=== PATIENT | female | born 1990 | race Caucasian/White ===

== ENCOUNTER 2020-08-16 12:16 | Inpatient (IN) | payer OTHER, SELFPAY ==
[2020-08-16] VITALS (147 sets, daily range): BP systolic 112–188; BP diastolic 68–108; PULSE 71–113; RESP 17–18; TEMP 36.6–37.2; O2SAT 93–100; BMI 31.4
--- NOTE | ~2020-08-16 | US_ITS ---
EXAMINATION: US OB follow up DATE: 08/16/2020 14:44 INDICATION: Growth and presentation. Third trimester. TECHNIQUE: Real-time ultrasound of the pelvis was performed. COMPARISON: None. FINDINGS: There is a single living fetus in vertex presentation. The placenta is fundal. heart rate is 1 59 beats per minute (bpm). The amniotic fluid index is 7.0 cm, which is low (5th percentile is 7.7 cm ). The following biometric data were obtained: Biparietal diameter (BPD): 8.9 cm; head circumference (HC): 31.9 cm; abdominal circumference (AC): 31 .4 cm; femur length (FL): 7.0 cm. These measurements are concordant. Estimated weight is 2731 g +/- 410 g, which correlates with 32nd percentile when 09/10/20 is use d as estimated date of delivery. As single measurements, these parameters are each equal to the following estimated gestational ages: BPD: 35 weeks 6 days. HC: 36 weeks 0 days. AC: 35 weeks 3 days. FL: 36 weeks 0 days. estimated gestational age based solely on measurements from this exam is 35 weeks 6 days +/- 2 weeks 4 days. IMPRESSION: 1. Single living fetus in vertex presentation. 2. Estimated weight is 2731 g +/- 410 g, which correlates with 32nd percentile when 09/10/20 is used as estimated date of delivery. 3. Oligohydramnios. Reviewed, dictated and finalized at location B. SOFTWARE DEVELOPER IMPRESSION: 1. Single living fetus in vertex presentation. 2. Estimated weight is 2731 g +/- 410 g, which correlates with 32nd perc entile when 09/10/20 is used as estimated date of delivery. 3. Oligohydramnios.
[2020-08-16 13:09] LABS: Basophils Percent Auto 0.3 % (0.2-1.2); Eosinophils Percent Auto 0.1 % (0-4.4); Hematocrit 35.3 % (37.0-47.0); Hemoglobin 11.8 g/dL (12.0-15.0); Immature Granulocyte Absolute 0.05 K/mm3 (0.00-0.031); Immature Granulocyte Percent A 0.5 % (0-0.5); Lymphocytes Percent Auto 24.7 % (18.3-44.2); Mean Corpuscular HGB Conc 33.4 g/dl (32-36); Mean Corpuscular Hemoglobin 29.4 pg (26-34); Mean Platelet Volume 12.9 fl (7.4-10.4); Monocytes Absolute Auto 0.7 K/mm3 (0.1-0.6); Monocytes Percent Auto 6.3 % (2.6-8.5); Neutrophils Absolute Auto 7.5 K/mm3 (1.3-6.7); Neutrophils Percent Auto 68.1 % (45.5-73.1); Platelet Count Result 184 k/mm3 (150-375); Red Blood Count 4.01 M/mm3 (4.2-5.4)
[2020-08-16 13:18] LABS: Alanine Aminotransferase 10 U/L (4-35); Albumin Level 3.3 g/dL (3.5-5.1); Alkaline Phosphatase 168 U/L (38-126); Anion Gap 2 mmol/L (8-16); Aspartate Amino Transferase 27 U/L (14-36); Bilirubin,Total 0.4 mg/dL (0.2-1.3); Blood Urea Nitrogen 12 mg/dL (7-17); Calcium 9.2 mg/dL (8.4-10.2); Carbon Dioxide 26 mmol/L (22-30); Chloride 105 mmol/L (98-107); Estimated Glomerular Filt Rate > 60; Glucose 81 mg/dL (65-105); Potassium 4.3 mmol/L (3.4-5.0); Sodium 133 mmol/L (137-145); Uric Acid 5.6 mg/dL (2.5-7.5)
[2020-08-16 13:34] LABS: Creatinine Urine 25.6 mg/dL; Total Protein Urine Random 144 mg/dL; Ur Ttl Prot Creatinine Ratio 5.63 mg/mg (0-0.20)
[2020-08-16 13:38] LABS: Add Urine Microscopic? YES; Appearance Urine Clear (Clear); Bacteria Urine 3+ /hpf; Bilirubin Urine Negative (Negative); Blood Urine Negative (Negative); Color Urine Straw (Yellow); Glucose Urine UA Negative (Negative); Ketones Urine Negative (Negative); Leukocyte Esterase Ur Trace LEU/UL (Negative); Mucus Urine Rare /lpf; Nitrate Urine Negative (Negative); Protein Urine 2+ mg/dL (Negative); RBC Urine 0-2 /hpf (0-2); Specific Grav Ur 1.009 (1.001-1.035); Squamous Epithelial Cell Urine Few /hpf (Few); Urobilinogen Urine Negative mg/dL (<2.0)
[2020-08-16] MEDS: LABETALOL HCL INJ 100 MG/20 ML VIAL 20 MG IV PUSH (13:43)
[2020-08-16] MEDS: BETAMETHASONE SOD PHOS/ACETATE 30 MG/5 ML VIAL 12 MG IM (13:50)
[2020-08-16] MEDS: LACTATED RINGERS 1,000 ML 75 ML IV CONT (15:54)
[2020-08-16] MEDS: MAGNESIUM SULF 4 GM/WATER100ML 4 GM/100 ML BAG IVPB (15:55)
[2020-08-16] MEDS: MAGNESIUM SULF 20GM/WATER500ML 500 ML 50 MG IV CONT (16:29)
[2020-08-16] MEDS: AMPICILLIN 2 GM/NS 100 ML 2 GM/100 ML BAG IVPB (16:30)
[2020-08-16] MEDS: OXYTOCIN 30 UNITS/NS 500 ML 30 UNITS/500 ML BAG 6 UNITS IV CONT (16:31)
--- NOTE | 2020-08-16 16:48 | PM.IMHP ---
H&P: HPI History of Present Illness Date/Time: 08/16/20 16:48 pt is a 30 y.o.G 1 P0 who is admitted for MIL due to severe preeclampsia, Tx with one dose of labetalol, and is now normotensive on magnesium sulfate. SVE /-2, AROM, anticipate vaginal delivery Chief Complaint: preeclampsia, MIL Narrative: Marcie Avina is a 30 year old female [facility] Family History Family History (Updated 08/16/20 @ 15:28 by Maggi Youngblood RN) Mother Throat cancer Social History Social History Substance use: never Spiritual care concerns: No Meds Home Medications and Allergies Home Medications Medication Instructions Recorded Confirmed Type PNV cmb#95-ferrous fumarate-FA 1 tablet PO DAILY 08/16/20 08/16/20 History [] Allergies Allergy/AdvReac Type Severity Reaction Status Date / Time No Known Allergies Allergy Verified 08/16/20 15:27 Vital Signs Vital Signs - 24 hr 08/16/20 12:46 08/16/20 13:01 08/16/20 13:16 Pulse Rate 74 79 71 Blood Pressure 179/107 H 171/103 H 188/108 H Pulse Oximetry 08/16/20 13:31 08/16/20 13:43 08/16/20 13:46 Pulse Rate 83 83 71 Blood Pressure 171/104 H 179/98 H Pulse Oximetry 08/16/20 14:01 08/16/20 14:16 08/16/20 15:16 Pulse Rate 72 73 80 Blood Pressure 159/91 H 155/91 H 162/96 H Pulse Oximetry 08/16/20 15:31 08/16/20 16:01 08/16/20 16:16 Pulse Rate 82 82 84 Blood Pressure 145/89 H 146/92 H 142/96 H Pulse Oximetry 08/16/20 16:31 08/16/20 16:34 08/16/20 16:39 Pulse Rate 88 Blood Pressure 143/95 H Pulse Oximetry 94 95 08/16/20 16:44 08/16/20 16:46 Pulse Rate 90 Blood Pressure 157/92 H Pulse Oximetry 96 H&P: Results Labs Labs: Short CBC 08/16/20 Range/Units 12:57 WBC 11.0 H (4.5-10.0) K/mm3 Hgb 11.8 L (12.0-15.0) g/dL Hct 35.3 L (37.0-47.0) % Plt Count 184 (150-375) k/mm3 BMP 08/16/20 12:57 Sodium 133 L Potassium 4.3 Chloride 105 Carbon Dioxide 26 BUN 12 Creatinine 0.70 Glucose 81 Calcium 9.2 Liver Function 08/16/20 Range/Units 12:57 Total Bilirubin 0.4 (0.2-1.3) mg/dL AST 27 (14-36) U/L ALT 10 (4-35) U/L Alkaline Phosphatase 168 H (38-126) U/L Albumin 3.3 L (3.5-5.1) g/dL Urine 08/16/20 Range/Units 13:15 Urine Color Straw (Yellow) Urine Appearance Clear (Clear) Urine pH 6.0 (5.0-9.0) Ur Specific [place] 1.009 (1.001-1.035) Urine Protein 2+ H (Negative) mg/dL Urine Glucose (UA) Negative (Negative) mg/dL
--- NOTE | 2020-08-16 17:19 | LDADM ---
This patient, Marcie Avina, was admitted to Labor/Delivery/Recovery 106 on 08/16/20 at 15:02. Plans for labor, pain management and were discussed with patient. Patient/family oriented to hospital policies and general routines including ID bracelet, bed and alarms, visiting hours, pain management, procedures, bathroom and other care routines, personal items, smoking policy, room service/diet and guest tray routines, infant security routines, and visiting hours. Patient/Family are encouraged to report perceived risks to care and to ask questions if they do not understand what they are told or what they should do. See OBIX for further documentation.
--- NOTE | 2020-08-16 20:25 | WPDANESEPPF ---
Anes - Initial Pre Proc Eval Date/Time: 08/16/20 20:25 Surgeon: Ashlee Sharif MD Pre Op Diagnosis: Elevated BP's Patient Data Age: 30 Gender: F Height: 4 ft 11 in Weight: 70.5 kg Last Vital Signs Temp 37.1 C 08/16/20 20:20 Pulse 92 08/16/20 20:23 Resp 18 08/16/20 19:53 BP 138/84 08/16/20 20:23 Pulse Ox 100 08/16/20 20:24 Allergies Allergy/AdvReac Type Severity Reaction Status Date / Time No Known Allergies Allergy Verified 08/16/20 15:27 Home Medications Medication Instructions Recorded Confirmed Type PNV cmb#95-ferrous fumarate-FA 1 tablet PO DAILY 08/16/20 08/16/20 History [] Laboratory Tests 08/16/20 08/16/20 08/16/20 12:57 12:57 13:15 WBC 11.0 K/mm3 H K/mm3 (4.5-10.0) RBC 4.01 M/mm3 L M/mm3 (4.2-5.4) Hgb 11.8 g/dL L g/dL (12.0-15.0) Hct 35.3 % L % (37.0-47.0) MCV 88.0 fl fl (80-100) MCH 29.4 pg pg (26-34) MCHC 33.4 g/dl g/dl (32-36) RDW 14.0 % % (11.5-14.5) Plt Count 184 k/mm3 k/mm3 (150-375) MPV 12.9 fl H fl (7.4-10.4) Immature Gran % (Auto) 0.5 % % (0-0.5) Neut % (Auto) 68.1 % % (45.5-73.1) Lymph % (Auto) 24.7 % % (18.3-44.2) [place] % (Auto) 6.3 % % (2.6-8.5) Eos % (Auto) 0.1 % % (0-4.4) Baso % (Auto) 0.3 % % (0.2-1.2) Lymph # (Auto) 2.70 K/mm3 K/mm3 (0.9-3.2) [place] # (Auto) 0.7 K/mm3 H K/mm3 (0.1-0.6) Eos # (Auto) 0.0 K/mm3 K/mm3 (0-0.3) Baso # (Auto) 0.0 K/mm3 K/mm3 (0.0-0.1) Abs Immat Gran (auto) 0.05 K/mm3 H K/mm3 (0.00-0.031) Absolute Neuts (auto) 7.5 K/mm3 H K/mm3 (1.3-6.7) Absolute Nucleated RBC 0.0 K/mm3 K/mm3 (0.0-0.012) Nucleated RBC % 0.0 % % (0.0-0.2) Sodium 133 mmol/L L mmol/L (137-145) Potassium 4.3 mmol/L mmol/L (3.4-5.0) Chloride 105 mmol/L mmol/L (98-107) Carbon Dioxide 26 mmol/L mmol/L (22-30) Anion Gap 2 mmol/L L mmol/L (8-16) BUN 12 mg/dL mg/dL (7-17) Creatinine 0.70 mg/dL mg/dL (0.7-1.0) Estim Creat Clear Calc Not Reportable Estimated GFR > 60 (59 - ) Glucose 81 mg/dL mg/dL (65-105) Uric Acid 5.6 mg/dL mg/dL (2.5-7.5) Calcium 9.2 mg/dL mg/dL (8.4-10.2) Total Bilirubin 0.4 mg/dL mg/dL (0.2-1.3) AST 27 U/L U/L (14-36) ALT 10 U/L U/L (4-35) Alkaline Phosphatase 168 U/L H U/L (38-126) Total Protein 7.0 g/dL g/dL (6.3-8.2) Albumin 3.3 g/dL L g/dL (3.5-5.1) Urine Color Straw (Yellow) Urine Appearance Clear (Clear) Urine pH 6.0 (5.0-9.0) Ur Specific [place] 1.009 (1.001-1.035) Urine Protein 2+ mg/dL H mg/dL (Negative) Urine Glucose (UA) Negative mg/dL mg/dL (Negative) Urine Ketones Negative mg/dL mg/dL (Negative) Ur Blood (Man) Negative (Negative) Urine Nitrate Negative (Negative) Urine Bilirubin Negative (Negative) Urine Urobilinogen Negative mg/dL mg/dL (<2.0) Leukocyte Esterase Rfl Trace FAUSTO/UL H FAUSTO/UL (Negative) Urine RBC 0-2 /hpf /hpf (0-2) Urine WBC 7-9 /hpf H /hpf Ur Squamous Epith Cells Few /hpf /hpf (Few) Urine Bacteria 3+ /hpf H /hpf Urine Mucus Rare /lpf /lpf U Random Total Protein Urine Creatinine Protein/Creat Ratio 2 RPR Blood Type Antibody Screen 08/16/20 08/16/20 08/16/20 13:15 15:49 15:49 WBC RBC Hgb Hct MCV MCH MCHC RDW Plt Count MPV
[2020-08-16] MEDS: LACTATED RINGERS 1,000 ML 125 ML IV CONT (20:28)
[2020-08-17] VITALS (121 sets, daily range): BP systolic 91–156; BP diastolic 52–99; PULSE 85–142; RESP 12–18; TEMP 36.7–37.1; O2SAT 95–100
[2020-08-17] MEDS: AMPICILLIN 1 GM/NS 50 ML 1 GM/50 ML BAG IVPB (00:14)
[2020-08-17 01:35] LABS: Glucose Point of Care 107 (65-105)
[2020-08-17] MEDS: MAGNESIUM SULF 20GM/WATER500ML 500 ML 50 MG IV CONT ×2 (02:06→12:27)
--- NOTE | 2020-08-17 05:00 | PM.OBPRVD ---
OB - Delivery Note Procedure Delivery date: 08/17/20 Procedure: vaginal delivery events: Pre-Eclampsia Intrapartal events: None Induction method: AROM and per pitocin protocol Delivery monitor: external FHT, external uterine and internal FHT Route of delivery: Laceration Description: Perineal - 1st Degree Delivery repair: vicryl Specimen: Yes Quantitative Blood Loss (ml): 192 Anesthesia type: Epidural Disposition: other () Narrative: pt currently on magnesium sulfate for preeclampsia, suture site oozing, vaginal pack placed Baby Date of : 08/17/20 Time of : 04:39 Weeks of gestation at delivery: 36 Infant gender: Female Weight (pounds): 5 Weight (ounces): 0 presentation: vertex position: Left Occiput Anterior Placenta delivery description: Spontaneous cord vessel description: 3 Vessels, Clamped/Cut and Delayed Cord Clamping Narrative: baby to warmer and to nursery for further monitoring
[2020-08-17] MEDS: OXYTOCIN 30 UNITS/NS 500 ML 30 UNITS/500 ML BAG 125 UNITS IV CONT (05:07)
[2020-08-17] MEDS: IBUPROFEN 600 MG TABLET PO ×2 (07:00→13:45)
[2020-08-17] MEDS: WITCH HAZEL 40 PADS 1 PAD TOPICAL (07:02)
[2020-08-17] MEDS: BENZOCAINE 20% AER SPR (*SP) 56 GM CAN 1 SPRAY TOPICAL (07:02)
--- NOTE | 2020-08-17 08:10 | OBPPTRN ---
0712 Patient transferred to post room #278 via W/C. Support person present. Oriented to unit, room, information board, rooming in, admission packet and security measures. Patient verbalizes understanding.
[2020-08-17] MEDS: LACTATED RINGERS 1,000 ML 75 ML IV CONT (13:44)
[2020-08-17 20:39] LABS: Magnesium 7.2 mg/dL (1.6-2.3)
[2020-08-18 04:00] VITALS: BP 127/80; PULSE 84; RESP 19; TEMP 36.7; O2SAT 98
[2020-08-18 04:45] LABS: Basophils Percent Auto 0.1 % (0.2-1.2); Eosinophils Percent Auto 0.1 % (0-4.4); Hemoglobin 9.5 g/dL (12.0-15.0); Immature Granulocyte Absolute 0.07 K/mm3 (0.00-0.031); Immature Granulocyte Percent A 0.5 % (0-0.5); Lymphocytes Absolute Auto 2.71 K/mm3 (0.9-3.2); Lymphocytes Percent Auto 19.1 % (18.3-44.2); Mean Corpuscular HGB Conc 33.9 g/dl (32-36); Mean Corpuscular Hemoglobin 29.9 pg (26-34); Mean Corpuscular Volume 88.1 fl (80-100); Mean Platelet Volume 12.4 fl (7.4-10.4); Monocytes Absolute Auto 0.7 K/mm3 (0.1-0.6); Monocytes Percent Auto 5.2 % (2.6-8.5); Neutrophils Absolute Auto 10.6 K/mm3 (1.3-6.7); Platelet Count Result 199 k/mm3 (150-375); Red Blood Count 3.18 M/mm3 (4.2-5.4); Red Cell Distribution Width 14.6 % (11.5-14.5); White Blood Count 14.2 K/mm3 (4.5-10.0)
[2020-08-18 05:10] LABS: Alanine Aminotransferase 13 U/L (4-35); Albumin Level 2.6 g/dL (3.5-5.1); Alkaline Phosphatase 139 U/L (38-126); Anion Gap -1 mmol/L (8-16); Aspartate Amino Transferase 39 U/L (14-36); Bilirubin,Total 0.3 mg/dL (0.2-1.3); Blood Urea Nitrogen 10 mg/dL (7-17); Calcium 5.4 mg/dL (8.4-10.2); Carbon Dioxide 30 mmol/L (22-30); Chloride 104 mmol/L (98-107); Estimated Glomerular Filt Rate > 60; Glucose 81 mg/dL (65-105); Sodium 133 mmol/L (137-145); Uric Acid 6.3 mg/dL (2.5-7.5)
[2020-08-18 07:45] VITALS: BP 130/76; PULSE 86; RESP 12; TEMP 36.7; O2SAT 95
--- NOTE | 2020-08-18 08:20 | WPDANLDPN2 ---
Anes-Prog Note L&D Date/Time: 08/18/20 08:20 Comfortable throughout: labor and delivery Neuraxial method: epidural Epidural/Spinal procedure site: clean & non-tender Neuro status: Neuro function grossly intact. Cardiovascular status: normal Respiratory status: normal Airway patency: baseline Mental status: baseline Post-Op hydration status: normal Vital Signs: Last Vital Signs Temp 36.7 C 08/18/20 04:00 Pulse 84 08/18/20 04:00 Resp 19 08/18/20 04:00 BP 127/80 08/18/20 04:00 Pulse Ox 98 08/18/20 04:00 Pain score (VAS): 08/04 I/O: Intake & Output 08/17/20 08/18/20 08/18/20 23:59 07:59 15:59 Intake Total 900 1100 Output Total 2950 1900 Balance -2049 -800 Post-procedural complaints: none Patient feedback: Patient satisfied with anesthetic care.
--- NOTE | 2020-08-18 09:36 | PM.OBPNVD ---
OB - PN: Subj Subjective Date/time seen: 08/18/20 09:36 Patient comments: no complaints baby status: doing well Narrative: Magnesium sulfate off last night, pt feeling better and bp normotensive OB - PN: Obj Data Labs CBC & Chem 7: 08/18/20 04:19 08/18/20 04:19 Labs: Laboratory Results - last 24 hr 08/17/20 08/18/20 08/18/20 20:19 04:19 04:19 WBC 14.2 H RBC 3.18 L Hgb 9.5 L Hct 28.0 L MCV 88.1 MCH 29.9 MCHC 33.9 RDW 14.6 H Plt Count 199 MPV 12.4 H Immature Gran % (Auto) 0.5 Neut % (Auto) 75.0 H Lymph % (Auto) 19.1 [place] % (Auto) 5.2 Eos % (Auto) 0.1 Baso % (Auto) 0.1 L Lymph # (Auto) 2.71 [place] # (Auto) 0.7 H Eos # (Auto) 0.0 Baso # (Auto) 0.0 Abs Immat Gran (auto) 0.07 H Absolute Neuts (auto) 10.6 H Absolute Nucleated RBC 0.0 Nucleated RBC % 0.0 Sodium 133 L Potassium 4.0 Chloride 104 Carbon Dioxide 30 Anion Gap -1 L BUN 10 Creatinine 0.70 Estim Creat Clear Calc Not Reportable Estimated GFR > 60 Glucose 81 Uric Acid 6.3 Calcium 5.4 L Magnesium 7.2 H Total Bilirubin 0.3 AST 39 H ALT 13 Alkaline Phosphatase 139 H Total Protein 5.0 L Albumin 2.6 L OB - PN A/P Plan day: 1 Plan: routine care Comments: rpt labs in am tomorrow Time Spent With Patient Time: Total time spent is greater than 50% in coordination of care (as documented) at patient's floor/unit and/or counseling patient: Review of Systems Review of Systems: All systems reviewed & are unremarkable except as noted in HPI and below Exam Const: General: cooperative Limitations: no limitations Psych: Affect: normal affect Attitude: cooperative Thought process: Normal thought process present Thought content: Yes Normal thought content present Insight: Good insight present (Psych) Judgement: Good judgement present (Psych)
[2020-08-18] MEDS: IBUPROFEN 600 MG TABLET PO ×3 (11:18→23:49)
[2020-08-18] MEDS: MULTIVIT/MIN/PREN/FOL AC/IRON TABLET 1 TAB PO (11:19)
[2020-08-18] MEDS: POLYSACCHARIDE IRON COMPLEX 150 MG CAPSULE PO ×2 (11:19→16:26)
[2020-08-18 16:26] VITALS: BP 132/79; O2SAT 95
[2020-08-18 19:10] VITALS: BP 127/89; PULSE 80; RESP 16; TEMP 36.9; O2SAT 97
[2020-08-18 23:45] VITALS: BP 127/82; PULSE 74; RESP 16; TEMP 36.5; O2SAT 97
--- NOTE | 2020-08-18 23:49 | PC.NURSE ---
Patient viewed the discharge video Mother & Baby Care, The First Two Weeks . Patient was given the opportunity and encouraged to ask questions. Patient verbalized understanding of information shared and has been given the mother/baby guide for home reference.
[2020-08-18] MEDS: TETANUS,DIPHTHERIA,AC PERTUSSIS ADULT (0.5 ML) BOOSTRIX IM (23:52)
[2020-08-19 04:28] VITALS: BP 138/93; PULSE 69; RESP 16; TEMP 36.7; O2SAT 97
[2020-08-19 04:30] LABS: Basophils Percent Auto 0.2 % (0.2-1.2); Eosinophils Percent Auto 0.1 % (0-4.4); Hematocrit 27.2 % (37.0-47.0); Hemoglobin 8.9 g/dL (12.0-15.0); Immature Granulocyte Absolute 0.08 K/mm3 (0.00-0.031); Immature Granulocyte Percent A 0.6 % (0-0.5); Lymphocytes Absolute Auto 3.21 K/mm3 (0.9-3.2); Mean Corpuscular HGB Conc 32.7 g/dl (32-36); Mean Corpuscular Volume 88.6 fl (80-100); Mean Platelet Volume 11.5 fl (7.4-10.4); Monocytes Absolute Auto 0.8 K/mm3 (0.1-0.6); Neutrophils Absolute Auto 9.3 K/mm3 (1.3-6.7); Neutrophils Percent Auto 69.1 % (45.5-73.1); Nucleated Red Blood Cells Perc 0.2 % (0.0-0.2); Platelet Count Result 195 k/mm3 (150-375); Red Blood Count 3.07 M/mm3 (4.2-5.4); Red Cell Distribution Width 14.5 % (11.5-14.5); White Blood Count 13.4 K/mm3 (4.5-10.0)
[2020-08-19 04:43] LABS: Alanine Aminotransferase 13 U/L (4-35); Albumin Level 2.7 g/dL (3.5-5.1); Alkaline Phosphatase 130 U/L (38-126); Anion Gap 2 mmol/L (8-16); Aspartate Amino Transferase 35 U/L (14-36); Bilirubin,Total 0.3 mg/dL (0.2-1.3); Blood Urea Nitrogen 9 mg/dL (7-17); Calcium 6.6 mg/dL (8.4-10.2); Carbon Dioxide 25 mmol/L (22-30); Chloride 106 mmol/L (98-107); Estimated Glomerular Filt Rate > 60; Glucose 75 mg/dL (65-105); Potassium 4.2 mmol/L (3.4-5.0); Sodium 133 mmol/L (137-145); Uric Acid 5.4 mg/dL (2.5-7.5)
[2020-08-19] MEDS: IBUPROFEN 600 MG TABLET PO (05:46)
[2020-08-19 07:00] VITALS: BP 154/98; PULSE 72; RESP 16; TEMP 36.8; O2SAT 97
--- NOTE | 2020-08-19 07:18 | P.PNOB_ITS ---
OB - PN: Subj Subjective Date/time seen: 08/19/20 07:18 Patient comments: no complaints baby status: doing well [place] feeding status: exclusively bottle feeding Narrative: E/A/V. Denies NEVAREZ/BV/EP. BPs normal to mildly elevated since magnesium. OB - PN: Obj Data Labs CBC & Chem 7: 08/19/20 04:22 08/19/20 04:22 Labs: Laboratory Results - last 24 hr 08/19/20 08/19/20 04:22 04:22 WBC 13.4 H RBC 3.07 L Hgb 8.9 L Hct 27.2 L MCV 88.6 MCH 29.0 MCHC 32.7 RDW 14.5 Plt Count 195 MPV 11.5 H Immature Gran % (Auto) 0.6 H Neut % (Auto) 69.1 Lymph % (Auto) 24.0 [place] % (Auto) 6.0 Eos % (Auto) 0.1 Baso % (Auto) 0.2 Lymph # (Auto) 3.21 H [place] # (Auto) 0.8 H Eos # (Auto) 0.0 Baso # (Auto) 0.0 Abs Immat Gran (auto) 0.08 H Absolute Neuts (auto) 9.3 H Absolute Nucleated RBC 0.0 Nucleated RBC % 0.2 Sodium 133 L Potassium 4.2 Chloride 106 Carbon Dioxide 25 Anion Gap 2 L BUN 9 Creatinine 0.70 Estim Creat Clear Calc Not Reportable Estimated GFR > 60 Glucose 75 Uric Acid 5.4 Calcium 6.6 L Total Bilirubin 0.3 AST 35 ALT 13 Alkaline Phosphatase 130 H Total Protein 5.0 L Albumin 2.7 L OB - PN A/P Plan day: 2 Plan: routine care and discharge home Comments: DC instructions given. FU BP check 4-7 days. Time Spent With Patient Time: Total time spent is greater than 50% in coordination of care (as documented) at patient's floor/unit and/or counseling patient: Time with patient: less than 15 minutes Exam Narrative: Exam Narrative: NAD abdomen soft, nontender, fundus firm below the umbilicus Extremities nontender, 1+ edema
--- NOTE | 2020-08-19 07:22 | P.DS_ITS ---
DS: Admitting Diagnosis Admitting Diagnosis Admitting Diagnosis: severe PreEclampsia 36 weeks DS: Discharge Diagnosis Discharge Diagnosis (1) Pre-eclampsia, delivered: Code(s): O14.94 - Unspecified pre-eclampsia, complicating childbirth Status: Acute OB - DS: Summary OB Procedures : Ultrasound OB Procedures Intrapartum: Spontaneous Vag Delivery OB Procedures: : None Peripartum Data Delivery Method: Natural Vaginal Laceration Description: Perineal - 1st Degree complications: none Status at Discharge Functional status at discharge: independent ambulation Time Spent with Patient Time attestation: Total time spent providing and/or coordinating discharge services: Time spent: Less than 30 minutes Exam Narrative: Exam Narrative: NAD abdomen soft, appropriately tender Ext non tender, 1+ edema DS: Data Data Completed and Pending Pending studies at discharge: Pending at discharge 08/17/20 04:45 Surgical [PTH] Routine Labs on day of discharge: Labs from last 24 hours 08/19/20 08/19/20 04:22 04:22 WBC 13.4 H RBC 3.07 L Hgb 8.9 L Hct 27.2 L MCV 88.6 MCH 29.0 MCHC 32.7 RDW 14.5 Plt Count 195 MPV 11.5 H Immature Gran % (Auto) 0.6 H Neut % (Auto) 69.1 Lymph % (Auto) 24.0 [place] % (Auto) 6.0 Eos % (Auto) 0.1 Baso % (Auto) 0.2 Lymph # (Auto) 3.21 H [place] # (Auto) 0.8 H Eos # (Auto) 0.0 Baso # (Auto) 0.0 Abs Immat Gran (auto) 0.08 H Absolute Neuts (auto) 9.3 H Absolute Nucleated RBC 0.0 Nucleated RBC % 0.2 Sodium 133 L Potassium 4.2 Chloride 106 Carbon Dioxide 25 Anion Gap 2 L BUN 9 Creatinine 0.70 Estim Creat Clear Calc Not Reportable Estimated GFR > 60 Glucose 75 Uric Acid 5.4 Calcium 6.6 L Total Bilirubin 0.3 AST 35 ALT 13 Alkaline Phosphatase 130 H Total Protein 5.0 L Albumin 2.7 L Discharge Plan Discharge Attending physician on discharge: Ashlee Sharif Discharging Clinician: Ashlee Sharif Anticipated Discharge Date/Time: 08/19/20 12:00 Patient Disposition: Home, Self-Care Activity: may shower and pelvic rest Diet: as tolerated Discharge Instructions: pelvic rest for 6 weeks BP ckeck 4-7 days Patient Instructions: Antibiotic Form Stand Alone Forms: General Discharge Information Follow-up/Referrals: Ashlee Sharif MD [Physician] - (BP check 4-7 days) Discharge Medications: Continued PNV cmb#95-ferrous fumarate-FA [] 28 mg iron- 800 mcg Tablet 1 tablet PO DAILY RF: 0 Date of admission: 08/16/20 15:02 Primary Care Provider: PHYSICIAN,PRODUCT SAFETY EXPERT Admitting Provider: Ashlee Sharif Attending physician on admission: Ashlee Sharif Condition: Stable
[2020-08-19 08:00] VITALS: BP 145/92; PULSE 71
[2020-08-19 09:16] LABS: Rapid Plasma Reagin Non-Reactive (NonReactive)
[2020-08-19] MEDS: POLYSACCHARIDE IRON COMPLEX 150 MG CAPSULE PO (10:13)
[2020-08-19] MEDS: DOCUSATE SODIUM 100 MG CAPSULE PO (10:13)
[2020-08-19] MEDS: MULTIVIT/MIN/PREN/FOL AC/IRON TABLET 1 TAB PO (10:13)
[2020-08-19 10:33] VITALS: BP 150/90
[2020-08-19 11:44] VITALS: PULSE 72
[2020-08-19] MEDS: LABETALOL HCL 100 MG TABLET PO (11:44)
[2020-08-19] MEDS: BENZOCAINE 20% AER SPR (*SP) 56 GM CAN 1 SPRAY TOPICAL (11:45)
[2020-08-19] MEDS: WITCH HAZEL 40 PADS 1 PAD TOPICAL (11:45)
[2020-08-19 13:15] VITALS: BP 135/89; PULSE 72
[2020-08-21 11:33] VITALS: BP 144/89; PULSE 78; RESP 20; TEMP 36.9; O2SAT 100
== END 2020-08-19 13:47 | disposition home or self-care (01) | DRG 807 ==
LOC: ANHOBPP 12:26 → ANHLDR 15:05 → ANHOB2 08-17 07:17
PROVIDERS: Advanced Practice Midwife; Admitting Provider Obstetrics & Gynecology; Visit Provider Obstetrics & Gynecology
DX: O14.14 Severe pre-eclampsia complicating childbirth (principal); Z37.0 Single live birth; O70.0 First degree perineal laceration during delivery; O76 Abnormality in fetal heart rate and rhythm complicating labor and delivery; Z3A.36 36 weeks gestation of pregnancy
CPT/HCPCS: 36415; 76816; 80053; 81001; 82570; 83735; 84156; 84550; 85025; 86592; 86850; 86900; 86901; 87086; 88307; 90715; A9270; J0290; J0702; J2590; J2795; J3475; J7120

== ENCOUNTER 2022-07-26 09:46 | Emergency (ER) | payer OTHER, SELFPAY ==
--- NOTE | 2022-07-26 09:53 | ED.URI ---
HPI - URI/Sore Throat General Chief Complaint: Upper Respiratory Infection Stated Complaint: SORE THROAT/COUGH/LOSS OF VOICE Time Seen by Provider: 07/26/22 10:05 Source: patient Mode of arrival: ambulatory Limitations: no limitations History of Present Illness HPI Narrative: Elsa is a 32-year-old female patient presenting to the clinic today with complaints of sore throat, cough, and losing her voice x 2-3 days. She reports she has had positive strep exposure. MD elicited complaint: sore throat and nasal congestion Related Data Allergies Allergy/AdvReac Type Severity Reaction Status Date / Time No Known Allergies Allergy Verified 07/26/22 10:07 Review of Systems Review of Systems: Pertinent positives per HPI. Patient denies any fever, chills, rash, headache, visual changes, dizziness, cough, shortness of breath, chest pain, palpitations, nausea, vomiting, diarrhea, constipation, abdominal pain, or any urinary issues. PMFSH Past Medical History Medical History PIH ( induced hypertension) Family History Family History Mother Throat cancer Social History Social History Smoking status: Never smoker Second hand tobacco smoke exposure: No Substance use: never Spiritual care concerns: No Comments At the time of my signature, I reviewed and agree with the nursing past medical, surgical, social, and family history. There is no relevant family history pertinent to the patient complaint. Exam Narrative: General: Well-developed, well nourished, in no apparent distress Head: Normocephalic, atraumatic Eyes: Pupils equally round and reactive to light bilaterally, EOM intact, sclera and conjunctive clear, no discharge, lids normal Ears: TMs intact and clear, ear canals clear, no drainage, grossly hearing normal. Nose: Nares patent, clear nasal discharge, no inflammation, no sinus tenderness. Mouth: Oral pharynx without lesions or masses, good dentition, MMM. Postnasal drip, oropharynx red Neck: Supple, trachea midline, no enlargement of anterior or posterior cervical nodes, no thyroid masses or goiter palpable. Cardio: Regular rate and rhythm, s1 and s2 normal, no murmur appreciated. Resp: Clear to auscultation bilaterally, no rhonchi, rales, wheezing or rubs Course Course Emergency Course: Portions of this record may have been created with voice recognition software. Level of Care: Express Care Visit Vital Signs Vital signs: Vital signs reviewed MDM - URI/Sore Throat MDM Narrative Medical decision making narrative: At the time of visit patient is resting comfortably on exam table. Strep screen was negative in the clinic today. We will send off for culture. Supportive measures were discussed with the patient she voiced understanding discharge instructions agrees to treatment plan. Differential Diagnosis Differential diagnosis: Likely upper respiratory infection, otitis media, sinusitis, viral infection, bronchitis, influenza, pharyngitis and other (COVID) Lab Data Labs: Strep Screen Presumptive Negative *(Reference Range: Negative)* Strep Screen Presumptive Negative *(Reference Range: Negative)* Discharge Plan Discharge Clinical Impression: Pharyngitis, Acute upper respiratory infection Patient Disposition: Home, Self-Care Condition: Stable Instructions: Antibiotic Form, Pharyngitis (ED), Upper Respiratory Infection (ED) Additional Instructions: Strep screen was negative in the clinic today. We will send for culture and if this comes back positive we will contact you in place you on antibiotics. Take prescription medications only as prescribed-prednisone Increase fluids and stay w
[2022-07-26 10:05] VITALS: BP 109/79; PULSE 75; RESP 16; TEMP 36.9; O2SAT 100
== END 2022-07-26 10:23 | disposition home or self-care (01) ==
PROVIDERS: Emergency Provider Nurse Practitioner Family
DX: J02.9 Acute pharyngitis, unspecified (principal); J06.9 Acute upper respiratory infection, unspecified
CPT/HCPCS: 87081; 87880; 99213; G0463

== ENCOUNTER 2023-11-18 16:10 | Emergency (ER) | payer OTHER, SELFPAY ==
[2023-11-18 16:31] VITALS: BP 114/83; PULSE 82; RESP 16; TEMP 37.2; O2SAT 99
--- NOTE | 2023-11-18 16:31 | ED.GENADULT ---
HPI - General Adult General Chief complaint: Upper Respiratory Infection Stated complaint: SORE THROAT/HEADACHE Source: patient, RN notes reviewed and old records reviewed Mode of arrival: ambulatory Limitations: no limitations History of Present Illness HPI narrative: 33-year-old female presents to [facility] with complaints bilateral ear pressure and sore throat that started yesterday. Patient denies any other symptoms. Patient has not taken anything for symptoms. Related Data Home Medications Medication Instructions Recorded Confirmed norgestimate 0.25 mg-ethinyl 1 tablet PO DAILY 11/18/23 11/18/23 estradiol 35 mcg tablet (Sprintec (28)) Allergies Allergy/AdvReac Type Severity Reaction Status Date / Time No Known Allergies Allergy Verified 11/18/23 16:27 Review of Systems Constitutional: Constitutional: Reports no additional constitutional complaints, Denies body ache(s), Denies chills, Denies fatigue, Denies fever(s) and Denies headache(s) Eyes: Eyes: Reports no additional eye complaints and Denies blurry vision ENT: Reports system reviewed and no additional complaints, except as documented, Denies vertigo, Denies dizziness, Denies ear discharge, Reports otalgia, Denies facial pain, Denies headache(s), Denies nasal congestion, Denies nasal discharge, Denies sinus pain, Denies sinus pressure and Reports sore throat Cardiovascular: Cardiovascular: Reports no additional cardiovascular complaints, Denies chest pain, Denies chest pain at rest, Denies rapid heart rate and Denies dyspnea Respiratory: Respiratory: Reports no additional respiratory complaints, Denies chest congestion, Denies cough, Denies pain on inspiration, Denies pain with cough and Denies dyspnea Gastrointestinal: Gastrointestinal: Denies abdominal pain, Denies diarrhea, Denies nausea and Denies vomiting Integumentary/Breasts: Skin/Breast: Denies rash Neurologic: Reports system reviewed and no additional complaints, except as documented, Denies vertigo, Denies dizziness and Denies headache(s) Endocrine: Endocrine: Denies fatigue [facility] Past Medical History Medical History PIH ( induced hypertension) Family History Family History Mother Throat cancer Social History Social History (Reviewed 11/18/23 @ 16:32 by NINA White Smoking status: Never smoker Second hand tobacco smoke exposure: No Substance use: never Spiritual care concerns: No Comments At the time of my signature, I reviewed and agree with the nursing past medical, surgical, social, and family history. There is no relevant family history pertinent to the patient complaint. Exam Const: General: cooperative, healthy appearing, no acute distress and well nourished Nutritional Appearance: well nourished Orientation/consciousness: patient oriented x3 Limitations: no limitations HENMT: Head: normal to inspection and normocephalic Ears: external ears normal, TM's normal bilaterally, TM normal on the left, EAC's normal and mastoids normal Face/Nose/Sinus: Normal nasal mucous membranes and turbinates present, normal facial exam and sinuses nontender Face and sinus: normal facial exam Mouth: Yes Normal oral and palatal mucosa present, Yes oropharynx normal and Yes moist mucous membranes Throat: posterior oropharynx normal, tonsils normal, uvula midline, normal tonsils, no peritonsillar masses, normal posterior oropharynx, no postnasal drainage and no uvular edema Eyes: General: appearance normal, both eyes and all related structures Sclera: sclerae normal Pupils: Equal, round and reactive pupils present Resp: Effort & Inspection: normal respiratory effort, able to speak in complete sentences, no audible wheezes, no cough, no respiratory distress and no retractions Auscultation: clear to auscultation bilaterally, no crackles, no rales, no
== END 2023-11-18 16:43 | disposition home or self-care (01) ==
PROVIDERS: Emergency Provider Registered Nurse
DX: J02.9 Acute pharyngitis, unspecified (principal)
CPT/HCPCS: 87081; 87880; 99213; G0463

== ENCOUNTER 2024-08-23 16:43 | Emergency (ER) | payer OTHER, SELFPAY ==
--- NOTE | 2024-08-23 16:55 | ED.URI ---
HPI - URI/Sore Throat General Chief Complaint: Upper Respiratory Infection Stated Complaint: SINUS/COLD Time Seen by Provider: 08/23/24 16:55 Source: patient Mode of arrival: ambulatory Limitations: no limitations History of Present Illness HPI Narrative: Dixon is a 34-year-old female patient presenting to the clinic today with complaints of nasal congestion, sneezing, and cough x2 days. She reports she was recently exposed to a co-worker who was sick. Denies any chest pain or shortness of breath. Denies any known fevers, chills, body aches. MD elicited complaint: cough and nasal congestion Related Data Home Medications ?Medication ?Instructions ?Recorded ?Confirmed ?Last Taken ?Type norgestimate 0.25 mg-ethinyl 1 tablet PO DAILY 11/18/23 11/18/23 Unknown History estradiol 35 mcg tablet (Sprintec (28)) Allergies Allergy/AdvReac Type Severity Reaction Status Date / Time No Known Allergies Allergy Verified 11/18/23 16:27 Review of Systems Review of Systems: Pertinent positives per HPI. Patient denies any fever, chills, rash, headache, visual changes, dizziness, shortness of breath, chest pain, palpitations, nausea, vomiting, diarrhea, constipation, abdominal pain, or any urinary issues. PMFSH Past Medical History Medical History PIH ( induced hypertension) Family History Family History Mother Throat cancer Social History Social History Smoking status: Never smoker Second hand tobacco smoke exposure: No Substance use: never Spiritual care concerns: No Comments At the time of my signature, I reviewed and agree with the nursing past medical, surgical, social, and family history. There is no relevant family history pertinent to the patient complaint. Exam Narrative: General: Well-developed, well nourished, in no apparent distress Head: Normocephalic, atraumatic Eyes: Pupils equally round and reactive to light bilaterally, EOM intact, sclera and conjunctive clear, no discharge, lids normal Ears: TMs intact and clear, ear canals clear, no drainage, grossly hearing normal. Nose: Nares patent, clear nasal discharge, no inflammation, no sinus tenderness. Mouth: Oral pharynx without lesions or masses, good dentition, MMM. Neck: Supple, trachea midline, no enlargement of anterior or posterior cervical nodes, no thyroid masses or goiter palpable. Cardio: Regular rate and rhythm, s1 and s2 normal, no murmur appreciated. Resp: Clear to auscultation bilaterally, no rhonchi, rales, wheezing or rubs Course Course Emergency Course: Portions of this record may have been created with voice recognition software. Level of Care: Express Care Visit Vital Signs Vital signs: Vital Signs Temperature 37.2 C 08/23/24 17:01 Pulse Rate 86 08/23/24 17:01 Respiratory Rate 16 08/23/24 17:01 Blood Pressure 128/89 08/23/24 17:01 Pulse Oximetry 99 08/23/24 17:01 Temperature 37.2 C 08/23/24 17:01 Pulse Rate 86 08/23/24 17:01 Respiratory Rate 16 08/23/24 17:01 Blood Pressure 128/89 08/23/24 17:01 Pulse Oximetry 99 08/23/24 17:01 Vital signs reviewed MDM - URI/Sore Throat MDM Narrative Medical decision making narrative: At the time of visit patient is resting comfortably on the exam table. Patient appears to be nontoxic. Labs: COVID and influenza testing was negative in the clinic today. Plan: I suspect patient has URI. Supportive measures were discussed with the patient and they voiced understanding discharge instructions and agrees to treatment plan. Return precautions reviewed Differential Diagnosis Differential diagnosis: Likely upper respiratory infection, otitis media, sinusitis, viral infection, bronchitis, influenza, pharyngitis and other (COVID) Discharge Plan Discharge Clinical Impression: Upper respiratory infection Qualifiers: URI type: unspecified URI Qualified Code(s): J06.9 - Acute upper respiratory infection, unspecified Patient Disposition: Home, Self-Care Condition: Stable Instructions: Antibiotic Form, Cold Symptoms (ED) Additional Instructions: COVID and influenza testing was negative. May take DayQuil/NyQuil for cold/flu symptoms Increase fluids and stay well hydrated Tylenol/motrin for pain/fever Flonase and OTC antihistamines as directed Vicks vapor rub to open sinuses Sinus rinses for congestion Cepacol spray, cough drops, throat lozenges, warm tea with honey/lemon, gargle salt water to soothe throat BRAT diet for diarrhea Clear liquids x 24 hours then advance as tolerated for nausea/vomiting Go to the ED if you develop a worsening in your condition- high fever not controlled by Tylenol or Motrin, dehydration, weakness, lethargy, shortness of breath, or chest pain. Follow up with your PCP in 3-5 days if symptoms persist. Patient Language: Jordanian Prescriptions: No Action norgestimate-ethinyl estradiol [Sprintec (28)] 0.25-35 mg-mcg tablet 1 tablet PO DAILY Follow-up/Referrals: PHYSICIAN,COSMETOLOGY INSTRUCTOR [Primary Care Provider] - Stand Alone Forms: Work/School Release IP Time of Disposition: 17:16 Quality NIHSS Nursing Documentation ED NIHSS nursing documentation: reviewed/agree
[2024-08-23 17:01] VITALS: BP 128/89; PULSE 86; RESP 16; TEMP 37.2; O2SAT 99
[2024-08-23 17:19] LABS: EDCOVIDSCREEN Negative (Negative); EDINFLUASCREEN Negative (Negative); EDINFLUBSCREEN Negative (Negative)
== END 2024-08-23 17:19 | disposition home or self-care (01) ==
PROVIDERS: Emergency Provider Nurse Practitioner Family
DX: J06.9 Acute upper respiratory infection, unspecified (principal); Z20.822 Contact with and (suspected) exposure to COVID-19
CPT/HCPCS: 87426; 87804; 99212; G0463